=== PATIENT | female | born 1960 | race African-American/Black ===

== ENCOUNTER 2023-05-20 17:01 | Emergency (ER) | payer OTHER ==
[~2023-05-20] VITALS: Ht 152.4 cm; Wt 59.0 kg
[~2023-05-20 17:01] MED LIST: BISOPROL FUM5 MG PO; MACROBID100 MG PO; MEDROL DOSEPAK4 MG PO; NAPROSYN500 MG PO
[2023-05-20 17:14] VITALS: TEMP 98.1
[2023-05-20 17:50] LABS: PLATELET COUNT 211 K/uL (152-353)
[2023-05-20 17:53] LABS: POTASSIUM 3.8 mmol/L (3.6-5.2)
[2023-05-20 17:59] LABS: PARTIAL THROMBOPLASTIN TIME 30.5 SECONDS (23.9-36.7)
[2023-05-20 21:42] VITALS: BP 158/68
== END 2023-05-20 21:45 | disposition home or self-care (01) ==
LOC: ED 17:01
PROVIDERS: Family Medicine
DX: I49.8 Other specified cardiac arrhythmias (principal); F41.9 Anxiety disorder, unspecified; R53.1 Weakness
CPT/HCPCS: 80053; 81002; 82550; 84484; 85027; 85610; 85730; 93005; 99284

== ENCOUNTER 2023-05-22 10:52 | Emergency (ER) | payer OTHER ==
[~2023-05-22] VITALS: Ht 152.4 cm; Wt 62.1 kg
[2023-05-22 11:05] VITALS: TEMP 97.2
[2023-05-22 12:11] LABS: PLATELET COUNT 189 K/uL (152-353)
[2023-05-22 12:19] LABS: POTASSIUM 3.9 mmol/L (3.6-5.2)
[2023-05-22 16:15] VITALS: BP 121/52
== END 2023-05-22 16:15 | disposition home or self-care (01) ==
LOC: ED 10:52
PROVIDERS: Family Medicine
DX: R53.1 Weakness (principal); N39.0 Urinary tract infection, site not specified; F01.50 Vascular dementia, unspecified severity, without behavioral disturbance, psychotic disturbance, mood disturbance, and anxiety; I10 Essential (primary) hypertension; Z86.73 Personal history of transient ischemic attack (TIA), and cerebral infarction without residual deficits; M19.90 Unspecified osteoarthritis, unspecified site; E11.9 Type 2 diabetes mellitus without complications; K21.9 Gastro-esophageal reflux disease without esophagitis; E78.00 Pure hypercholesterolemia, unspecified
CPT/HCPCS: 80053; 81000; 82150; 83690; 85027; 87086; 87088; 96372; 99283; J0696; J2001

== ENCOUNTER 2023-06-25 09:58 | Outpatient (CLI) | payer OTHER ==
[2023-06-25 10:21] LABS: PLATELET COUNT 197 K/uL (152-353)
== END 2023-06-25 19:54 | disposition home or self-care (01) ==
LOC: LABW 09:58
PROVIDERS: ATTEND Family Medicine
DX: I10 Essential (primary) hypertension (principal); E11.65 Type 2 diabetes mellitus with hyperglycemia; F41.8 Other specified anxiety disorders; Z86.73 Personal history of transient ischemic attack (TIA), and cerebral infarction without residual deficits; E55.9 Vitamin D deficiency, unspecified; R82.998 Other abnormal findings in urine
CPT/HCPCS: 36415; 80053; 80061; 81000; 82306; 83036; 84439; 84443; 85027; 87088